=== PATIENT | female | born 1955 | race Caucasian/White ===

== ENCOUNTER 2019-05-13 07:41 | Day surgery (SDC) | payer OTHER ==
--- NOTE | 2019-05-12 16:27 | EKG ---
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
--- OUTSIDE RECORDS SUMMARY | 2019-05-13 07:43 | XMS REPORT | Clinical Summary ---
:1955 Author Organization [facility] Address [address] [place] [address] Care Team Providers Name Role Phone Edgar Sidhu MD Primary Care Provider Allergies Active Allergy Reactions Severity Noted Date Comments Adhesive Swelling, Rash Low 11/19/2017 Latex Swelling, Rash Low 07/09/2017 Penicillins Swelling, Rash Low 07/09/2017 Prednisone 07/09/2017 Allergy to all steroids, SECONDARY RENAL FAILURE Medications Medication Sig Dispensed Refills Start Date End Date Status gabapentin (NEURONTIN) Take 600 mg by 0 Active 600 mg tablet mouth 2 (two) times a day. traMADol (ULTRAM) 50 mg Take 50 mg by 0 Active tablet mouth 3 (three) times a day. tiZANidine (ZANAFLEX) 4 Take 4 mg by 0 Active MG tablet mouth 3 (three) times a day. iyezqxq-sdqomfkgtu-XNM- Take 1 capsule by 0 Active caff (FIORINAL WITH mouth 2 (two) CODEINE) [id number] times a day as mg capsule needed for pain. escitalopram (LEXAPRO) Take 10 mg by 0 Active 10 MG tablet mouth daily. cyanocobalamin 1,000 Inject 1,000 mcg 0 Active mcg/mL injection into the shoulder, thigh, or buttocks every 30 (thirty) days. sucralfate (CARAFATE) 1 Take 1 g by mouth 0 11/05/2017 Active gram tablet every morning. methocarbamol Take 1 tablet 40 tablet 3 11/23/2017 Active (ROBAXIN-750) 750 MG every 6 hours as tablet needed for spasms rivaroxaban (XARELTO) Take 10 mg by 0 Active 10 mg tablet mouth daily. CYANOCOBALAMIN, VITAMIN Take 5,000 mcg by 0 Active B-12, ORAL mouth daily. cholecalciferol, Take 1 tablet by 0 Active vitamin D3, (VITAMIN mouth daily. D3) 5,000 unit tablet Active Problems Problem Noted Date Cervical spinal stenosis 11/23/2017 Encounters Date Type Specialty Care Team Description 04/22/2019 Hospital Encounter Radiology Douglas Wade, Spinal stenosis in cervical region; Cervical stenosis (uterine cervix) 04/22/2019 Hospital Encounter Radiology Douglas Wade, Spinal stenosis in cervical region; Cervical stenosis (uterine cervix) 04/01/2019 Hospital Encounter Radiology Douglas Wade, Lumbar stenosis with neurogenic claudication; Cervical stenosis (uterine cervix) 04/01/2019 Hospital Encounter Radiology Douglas Wade, Lumbar stenosis with neurogenic claudication; Cervical stenosis (uterine cervix) 04/01/2019 Transcribe Orders Access Douglas Wade, Lumbar stenosis with neurogenic claudication (Primary Dx); Cervical stenosis (uterine cervix); Spinal stenosis in cervical region 06/09/2018 Hospital Encounter Radiology Douglas Wade, Cervical spinal stenosis 06/09/2018 Hospital Encounter Radiology Douglas Wade, Cervical stenosis of MD spinal canal 06/09/2018 Transcribe Orders Access Douglas Wade, Cervical spinal stenosis (Primary Dx) 06/09/2018 Transcribe Orders Access Douglas Wade, Cervical stenosis of MD spinal canal (Primary Dx) after 05/12/2018 Immunizations Name Dates Previously Given Next Due Influenza, Unspecified 07/05/2017 Family History Medical History Relation Name Comments Heart disease Father Hypertension Father Cancer Mother LUNG Hypertension Mother Heart disease Paternal Grandfather Stroke Paternal Grandfather Diabetes Paternal Uncle Relation Name Status Comments Father Mother Paternal Grandfather Paternal Uncle Social History Tobacco Use Types Packs/Day Years Used Date Never Smoker Smokeless Tobacco: Never Used Alcohol Use Drinks/Week oz/Week Comments No Sex Assigned at Date Recorded Not on file Job Start Date Occupation Industry Not on file Not on file Not on file Travel History Travel Start Travel End No recent travel history available. Last Filed Vital Signs Vital Sign Reading Time Taken Blood Pressure 126/68 04/22/2019 11:00 AM CDT Pulse 56 04/22/2019 11:00 AM CDT Temperature 36.6 C (97.9 F) 04/22/2019 8:40 AM CDT Respiratory Rate 18 04/22/2019 8:40 AM CDT Oxygen Saturation 98% 04/22/2019 11:00 AM CDT Inhaled Oxygen Concentration - - Weight 81.2 kg (179 lb) 04/22/2019 8:40 AM CDT Height 162.6 cm (5' 4") 04/22/2019 8:40 AM CDT Body Mass Index 30.73 04/22/2019 8:40 AM CDT Plan of Treatment Health Maintenance Due Date Last Done Comments BREAST CANCER SCREENING 2007 COLONOSCOPY SCREENING 2007 SHINGLES VACCINES (#1) 2007 INFLUENZA VACCINE 05/05/2019 07/05/2017 Implants Implanted 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 IR MYELOGRAM CERV Routine 04/22/2019 9:56 AM Spinal stenosis in Results for this INCL INJ W S&I CDT cervical region procedure are in Cervical stenosis the results (uterine cervix) section. XR LUMBAR SPINE AP Routine 04/01/2019 12:08 PM Lumbar stenosis with Results for this LATERAL FLEXION CDT neurogenic procedure are in AND EXTENSION claudication the results Cervical stenosis section. (uterine cervix) XR CERVICAL SPINE Routine 04/01/2019 12:08 PM Lumbar stenosis with Results for this AP LATERAL FLEXION CDT neurogenic procedure are in AND EXTENSION claudication the results Cervical stenosis section. (uterine cervix) XR LUMBAR SPINE AP Routine 06/09/2018 10:16 AM Cervical spinal Results for this LATERAL FLEXION CDT stenosis procedure are in AND EXTENSION the results section. XR CERVICAL SPINE Routine 06/09/2018 10:16 AM Cervical stenosis of Results for this AP LATERAL FLEXION CDT spinal canal procedure are in AND EXTENSION the results section. after 05/12/[address] Post Myelogram Cervical (04/22/2019 10:01 AM CDT) Specimen Narrative Performed At EXAMINATION: CT POST MYELOGRAM CERVICAL [facility] CLINICAL HISTORY: M48.02 Spinal stenosiscervical region, N88.2 Stricture and stenosis of cervix uteri, m48.02 COMPARISON:Cervical x-ray dated April 01, 2019 and MRI cervical spine dated April 15, [address] myelogram dated July 09, 2017 TECHNIQUE: Axial postintrathecal contrast enhanced images of the spine were obtained with coronal and sagittal MIP reconstructed imaging. CT imaging was performed with iterative reconstruction technique and/or automated exposure control to reduce radiation dose. FINDINGS: Cervical alignment is normal without straightening or spondylolisthesis. There is no fracture. An artificial disc is noted at C3-C4 and normal position. Lung apices are clear. Soft tissues shows no mass, adenopathy or edema. At C1-C2 there is mild osseous spurring at the atlantoaxial interval. There is no significant spondylosis or stenosis. The erosive changes of the right sided facet have improved since surgery. At C2-C3 there is stable right-sided uncovertebral arthrosis and facet disease with hypertrophy without stenosis. At C3-C4 there is a artificial disc noted in place. There is no posterior spondylosis or canal narrowing. Uncovertebral arthrosis and facet disease is present with mild to moderate right-sided osseous foraminal narrowing which is slightly improved from the preoperative CT exam with no evidence of progression. The left foramen and canal are widely patent. At C4-C5 there is no significant spondylosis or stenosis. At C5-C6 there is no spondylosis or stenosis. At C6-C7 there is mild disc bulge without canal narrowing. At C7-T1 there is no significant spondylosis or stenosis. IMPRESSION: 1.Findings show interval artificial disc placement changes at C3-C4 with good imaging postoperative appearance of the disc and good position. 2.The previously visualized moderate right foraminal narrowing at C3-4 has improved status post surgery with only mild to moderate osseous foraminal narrowing identified. No other stenosis identified or significant osseous abnormality. There are no CT myelogram findings to explain patient's severe neck pain and bilateral upper extremity pain. 3.The facet disease and erosive changes of the right C2-3 and C3-4 facets are actually improved from the prior exam. No progressive changes are identified. [id number] Procedure Note Interface, Radiology Results 04/22/2019 10:40 AM CDT EXAMINATION: CT POST MYELOGRAM CERVICAL CLINICAL HISTORY: M48.02 Spinal stenosis cervical region, N88.2 Stricture and stenosis of cervix uteri, m48.02 COMPARISON: Cervical x-ray dated April 01, 2019 and MRI cervical spine dated April 15, [address] myelogram dated July 09, 2017 TECHNIQUE: Axial postintrathecal contrast enhanced images of the spine were obtained with coronal and sagittal MIP reconstructed imaging. CT imaging was performed with iterative reconstruction technique and/or automated exposure control to reduce radiation dose. FINDINGS: Cervical alignment is normal without straightening or spondylolisthesis. There is no fracture. An artificial disc is noted at C3-C4 and normal position. Lung apices are clear. Soft tissues shows no mass, adenopathy or edema. At C1-C2 there is mild osseous spurring at the atlantoaxial interval. There is no significant spondylosis or stenosis. The erosive changes of the right sided facet have improved since surgery. At C2-C3 there is stable right-sided uncovertebral arthrosis and facet disease with hypertrophy without stenosis. At C3-C4 there is a artificial disc noted in place. There is no posterior spondylosis or canal narrowing. Uncovertebral arthrosis and facet disease is present with mild to moderate right-sided osseous foraminal narrowing which is slightly improved from the preoperative CT exam with no evidence of progression. The left foramen and canal are widely patent. At C4-C5 there is no significant spondylosis or stenosis. At C5-C6 there is no spondylosis or stenosis. At C6-C7 there is mild disc bulge without canal narrowing. At C7-T1 there is no significant spondylosis or stenosis. IMPRESSION: 1. Findings show interval artificial disc placement changes at C3-C4 with good imaging postoperative appearance of the disc and good position. 2. The previously visualized moderate right foraminal narrowing at C3-4 has improved status post surgery with only mild to moderate osseous foraminal narrowing identified. No other stenosis identified or significant osseous abnormality. There are no CT myelogram findings to explain patient's severe neck pain and bilateral upper extremity pain. 3. The facet disease and erosive changes of the right C2-3 and C3-4 facets are actually improved from the prior exam. No progressive changes are identified. [facility]-[id number] [facility] Organization Address City/State/Zipcode Phone Number [facility] [address] [place] [address] IR Myelogram Cerv Incl Inj W S&I (04/22/2019 9:56 AM CDT) Specimen Narrative Performed At EXAMINATION:IR MYELOGRAM CERV INCL INJ W S&I [facility] CLINICAL HISTORY:M48.02 Spinal stenosiscervical region, N88.2 Stricture and stenosis of cervix uteri, m48.02 COMPARISON:CT post myelogram dated April 22, 2019 of the cervical spine TECHNIQUE: After informed consent was obtained, the patient was placed prone on the fluoroscopy table. The back was prepped and draped in sterile manner.1% buffered lidocaine was used for local anesthesia. Under fluoroscopic guidance, a 27-gauge needle was advanced percutaneously into the spinal subarachnoid space via interlaminar approach at L2-L3 until free-flowing CSF returned from the hub. Subsequently,10-mL of iohexol 300was instilled into the thecal sac. The needle was removed. Multiple myelographic projections of the cervicalspine were obtained. The patient tolerated procedure well with no immediate complication. Total fluoroscopy time was 0.33 minutes.Total radiation dose is 365 mGy=Ka,r FINDINGS: The patient was unable to extend the neck. The contrast was diluted between the thoracic spine and basal cisterns. However contrast flows well-visualized on the CT portion of the myelogram. Please see that report for full details. The patient was unable to tolerate an extended neck position due to pain to get dense opacification by radiographic imaging. IMPRESSION: Successful myelographic contrast injection in the lumbar spine with contrast movement to the cervical spine with dilution of contrast resulting in high quality CT myelogram images above the conventional myelographic imaging as above. [id number] Procedure Note Interface, Radiology Results Incoming - 04/22/2019 5:14 PM CDT EXAMINATION: IR MYELOGRAM CERV INCL INJ W S&I CLINICAL HISTORY: M48.02 Spinal stenosis cervical region, N88.2 Stricture and stenosis of cervix uteri, m48.02 COMPARISON: CT post myelogram dated April 22, 2019 of the cervical spine TECHNIQUE: After informed consent was obtained, the patient was placed prone on the fluoroscopy table. The back was prepped and draped in sterile manner. 1% buffered lidocaine was used for local anesthesia. Under fluoroscopic guidance, a 27 -gauge needle was advanced percutaneously into the spinal subarachnoid space via interlaminar approach at L2-L3 until free-flowing CSF returned from the hub. Subsequently,10 -mL of iohexol 300 was instilled into the thecal sac. The needle was removed. Multiple myelographic projections of the cervical spine were obtained. The patient tolerated procedure well with no immediate complication. Total fluoroscopy time was 0.33 minutes. Total radiation dose is 365 mGy =Ka,r FINDINGS: The patient was unable to extend the neck. The contrast was diluted between the thoracic spine and basal cisterns. However contrast flows well-visualized on the CT portion of the myelogram. Please see that report for full details. The patient was unable to tolerate an extended neck position due to pain to get dense opacification by radiographic imaging. IMPRESSION: Successful myelographic contrast injection in the lumbar spine with contrast movement to the cervical spine with dilution of contrast resulting in high quality CT myelogram images above the conventional myelographic imaging as above. [facility]-[id number] Performing Organization Address City/State/Zipcode Phone Number [facility] [address] [place] [address] XR Lumbar Spine Ap Lateral Flexion And Extension (04/01/2019 12:08 PM CDT)Only the most recent of2 resultswithin the time period is included. Specimen Narrative Performed At EXAMINATION:XR LUMBAR SPINE AP LATERALFLEXION AND EXTENSION [facility] CLINICAL HISTORY:M48.062 Spinal stenosislumbar region with neurogenic claudication, N88.2 Stricture and stenosis of cervix uteri, lumbar stenosis IMPRESSION: 4 views of the lumbar spine were obtained. There are raw facet hypertrophic spondylotic changes at L4-L5 and L5-S1 level. There is a minimal grade 1 anterior listhesis of L4 on L5 level that measures 3 mm during neutral position. There is a complete reduction to 0 mm during extension and slight worsening during flexion which measures 4.5 mm. The bone density is unremarkable. The vertebral body height is unremarkable with no compression deformity. [id number] Procedure Note Interface, Radiology Results Incoming - 04/01/2019 6:54 PM CDT EXAMINATION: XR LUMBAR SPINE AP LATERAL FLEXION AND EXTENSION CLINICAL HISTORY: M48.062 Spinal stenosis lumbar region with neurogenic claudication, N88.2 Stricture and stenosis of cervix uteri, lumbar stenosis IMPRESSION: 4 views of the lumbar spine were obtained. There are raw facet hypertrophic spondylotic changes at L4-L5 and L5-S1 level. There is a minimal grade 1 anterior listhesis of L4 on L5 level that measures 3 mm during neutral position. There is a complete reduction to 0 mm during extension and slight worsening during flexion which measures 4.5 mm. The bone density is unremarkable. The vertebral body height is unremarkable with no compression deformity. [id number] Performing Organization Address [facility]/Zipcode Phone Number [facility] [address] [place] [address] XR Cervical Spine Ap Lateral Flexion And Extension (04/01/2019 12:08 PM CDT) Only the most recent of2 resultswithin the time period is included. Specimen Narrative Performed At EXAMINATION:XR CERVICAL SPINE AP LATERAL FLEXION AND EXTENSION [facility] CLINICAL HISTORY:M48.062 Spinal stenosislumbar region with neurogenic claudication, N88.2 Stricture and stenosis of cervix uteri, cervical stenosis IMPRESSION: 4 views of the cervical spine were obtained. There is intervertebral dynamic artificial disc graft at C3-C4 level which demonstrates good incorporation the bone with no loosening. The cervical spine alignment is unremarkable. The flexion-extension views versus no evidence of instability or abnormal motion. [id number] Procedure Note Hm Interface, Radiology Results Incoming - 04/01/2019 6:43 PM CDT EXAMINATION: XR CERVICAL SPINE AP LATERAL FLEXION AND EXTENSION CLINICAL HISTORY: M48.062 Spinal stenosis lumbar region with neurogenic claudication, N88.2 Stricture and stenosis of cervix uteri, cervical stenosis IMPRESSION: 4 views of the cervical spine were obtained. There is intervertebral dynamic artificial disc graft at C3-C4 level which demonstrates good incorporation the bone with no loosening. The cervical spine alignment is unremarkable. The flexion-extension views versus no evidence of instability or abnormal motion. [id number] Performing Organization Address City/[facility]/Zipcode Phone Number [facility] [address] [place] [address] after 05/12/2018 Insurance Payer Benefit Plan / Subscriber ID Effective Dates Phone Address Type Group [employer] MEDICARE HU[employer] MEDICARE xxxxxxxxx 2016-Present PPO PPO/PFFS/ERS [facility] [place] [address]
--- OUTSIDE RECORDS SUMMARY | 2019-05-13 07:44 | XMS REPORT | Continuity of Care Document ---
:1955 Author Organization [facility] Bench Care Team Providers Name Role Phone [facility] Bench Unavailable Unavailable Problems Problem Status Onset Classification Date Comments Source Date Reported KNEE ARTHRITIS Active [place] [id number] [place] Arthritis Active Problem 08/01/2017 [facility] Depression Active Problem 08/01/2017 [facility] Gastric ulcer Resolved Problem 08/01/2017 [facility] Blood clotting Resolved Problem 08/01/2017 had blood Ortho tendency1 clots x2 in and Spine LLE > 10 yrs ago Migraines Active Problem 08/01/2017 [facility] History of Active Problem 08/01/2017 Ortho recurrent deep and Spine vein thrombosis (Confirmed) Medications Medication Details Route Status Patient Ordering Order Source Instructions Provider Date Oxycodone 5 mg, 1 tab, Inactive Hydrochloride 5 Route: PO, 017 Ortho MG Oral Tablet Drug form: and TAB, ONCE, Spine Dosing Weight 69.182, kg, PRN Pain Score 4-6, Priority: NOW, Start date: 07/29/17 10:11:00 CDTNotes: (Same as: Roxicodone) gabapentin 600 MG 600 mg=1 tab, Active MH Oral Tablet PO, TID, # 90 017 Ortho tab, 0 and Refill(s), Spine Pharmacy: [facility] [id number] Acetaminophen 325 1 tab, PO, Active MH MG / Hydrocodone Q6H, PRN for 017 Ortho Bitartrate 7.5 MG pain, X 10 and Oral Tablet day, # 40 Spine [[place] 7.5/325] tab, 0 Refill(s), given to patient rivaroxaban 15 mg, 1 tab, No Longer Route: PO, Active 017 Ortho Drug form: and TAB, Q24H, Spine Dosing Weight 69.182, kg, Start date: 07/28/17 11:00:00 CDT, Stop date: 08/26/17 11:00:00 CSTNotes: (Same as: Xarelto) Administer with food gabapentin 600 MG 600 mg, 2 No Longer 07/28/2 MH Oral Tablet cap, Route: Active 017 Ortho PO, Drug and form: CAP, Spine TID, Dosing Weight 69.182, kg, Start date: 07/28/17 9:00:00 CDT, Duration: 30 day, Stop date: 08/26/17 17:00:00 CSTNotes: (Same as: Neurontin) Vitamin B12 5,000 mg, No Longer MH 5,000 tab, Active 017 Ortho Route: PO, and Drug form: Spine TAB, Daily, Dosing Weight 69.182, kg, Start date: 07/28/17 9:00:00 CDT, Duration: 30 day, Stop date: 08/26/17 9:00:00 TIN STACKER, Patient's Own MedsNotes: (Same As: Vitamin B-12) POLYETHYLENE 17 gm, 1 pkt, No Longer MH GLYCOL 3350 Route: PO, Active 017 Ortho Drug form: and PWDR, Daily, Spine Dosing Weight 69.182, kg, Start date: 07/28/17 9:00:00 CDT, Duration: 30 day, Stop date: 08/26/17 9:00:00 CSTNotes: Dissolve in 8 oz of water or juice. (Same as: Miralax) senna 8.6 mg oral 8.6 mg, 1 No Longer MH tablet tab, Route: Active 017 Ortho PO, Drug and Form: TAB, Spine Dosing Weight 69.182, kg, Daily, Start date: 07/28/17 9:00:00 CDT, Duration: 30 day, Stop date: 08/26/17 9:00:00 CSTNotes: (Same as: Senokot) Lexapro 10 mg, 1 tab, No Longer 2 MH Route: PO, Active 017 Ortho Drug form: and TAB, Daily, Spine Dosing Weight 69.182, kg, Start date: 07/28/17 9:00:00 CDT, Duration: 30 day, Stop date: 08/26/17 9:00:00 TIN STACKER, Patient's Own MedsNotes: (Same as: Lexapro) Vitamin D3 5000 5,000 No Longer MH intl units oral IntlUnit, 5 Active 017 Ortho capsule tab, Route: and PO, Drug Spine form: TAB, Daily, Dosing Weight 69.182, kg, Start date: 07/28/17 9:00:00 CDT, Duration: 30 day, Stop date: 08/26/17 9:00:00 TIN STACKER, Patient's Own MedsNotes: Same as : Vitamin D3 Physical Therapy See Active Instructions, 017 Ortho MISC, ONCALL, and Evaluate and Spine Treat _3__ times per week for __4__ weeks. TKA protocol ROM goal 0-120, # 1 unit, 0 Refill(s) Vancomycin 1,000 mg, No Longer Route: IVPB, Active 017 Ortho Q12H, Dosing and Weight Spine 69.182, kg, Time Critical Medication, Start date: 07/27/17 22:00:00 CDT, Duration: 2 doses or times, Stop date: 07/28/17 10:00:00 CDT, Pharmacy to adjust dose for renal function, ABX Indication: Surgical Prop...Notes: TIME CRITICAL MEDICATION (Same As: Vancocin) Infusion rate 2001 mg: infuse over 2.5 hours MEDICATION WASTE Product Size: 1000 mg Product Wasted: ___ mg Ondansetron 4 mg, 2 mL, Inactive Route: IV, 017 Ortho Drug form: and INJ, Q8H, Spine Dosing Weight 69.091, kg, PRN Nausea, Start date: 07/27/17 19:48:00 CDT, Duration: 3 doses or times, Stop date: Limited # of timesNotes: (Same as: Zofran) MEDICATION WASTE Product Size: 4 mg Product Wasted: ___ mg Tranexamic Acid 1.95 gm, 3 Inactive tab, Route: 017 Ortho PO, Drug and form: TAB, Spine ONCE, Dosing Weight 69.091, kg, Start date: 07/27/17 19:48:00 CDT, Stop date: 07/27/17 19:48:00 CDTNotes: (Same as: Lysteda) Non-Formulary Lactated Ringers 1,000 mL, No Longer 1,000 mL Rate: 40 Active 017 Ortho ml/hr, Infuse and over: 25 hr, Spine Route: IV, Dosing Weight 69.182 kg, Total Volume: 1,000, Start date: 07/27/17 17:32:00 CDT, Duration: 30 day, Stop date: 08/26/17 17:31:00 TIN STACKER Docusate 100 mg, Inactive MH Route: PO, 017 Ortho BID, Dosing and Weight Spine 69.182, kg, Start date: 07/27/17 17:00:00 CDT, Duration: 30 day, Stop date: 08/26/17 9:00:00 TIN STACKER Miralax 17 gm, 1 pkt, Inactive Route: PO, 017 Ortho Drug form: and PWDR, BID, Spine Dosing Weight 69.182, kg, Start date: 07/27/17 17:00:00 CDT, Duration: 30 day, Stop date: 08/26/17 9:00:00 CSTNotes: Dissolve in 8 oz of water or juice. (Same as: Miralax) Docusate Sodium 100 mg, 1 No Longer MH 100 MG Oral cap, Route: Active 017 Ortho Capsule [Colace] PO, Drug and form: CAP, Spine BID, Dosing Weight 69.182, kg, Start date: 07/27/17 17:00:00 CDT, Duration: 30 day, Stop date: 08/26/17 9:00:00 CSTNotes: (Same as: Colace) (Do Not Crush) Fiorinal with Fiorinal with No Longer Codeine Codeine, 2 Active 017 Ortho cap, Drug and form: MISC, Spine Route: PO, Q6H, PRN Headache 7-10, 07/27/17 14:51:00 CDT, Duration: 30 day, Stop date: 08/26/17 14:50:00 TIN STACKER Demerol HCl 12.5 mg, 0.25 Inactive MH mL, Route: 017 Ortho IVP, Drug and form: INJ, Spine POST OP, Dosing Weight 69.182, kg, PRN Chills/Rigors , Start date: 07/27/17 14:15:00 CDT, Stop date: 07/31/17 14:14:00 CDTNotes: (Same as: Demerol) "Use Precaution in Elderly, Seizure disorders, and Renal impairment" Demerol HCl 12.5 mg, 0.25 No Longer MH mL, Route: Active 017 Ortho IVP, Drug and form: INJ, Spine POST OP, Dosing Weight 69.182, kg, PRN Chills/Rigors , Start date: 07/27/17 14:00:00 CDT, Stop date: 07/31/17 13:59:00 CDTNotes: (Same as: Demerol) "Use Precaution in Elderly, Seizure disorders, and Renal impairment" Trazodone 50 mg, 1 tab, No Longer MH Route: PO, Active 017 Ortho Drug form: and TAB, Bedtime, Spine Dosing Weight 69.182, kg, PRN Insomnia, Start date: 07/27/17 13:48:00 CDT, Duration: 30 day, Stop date: 08/26/17 13:47:00 CSTNotes: (Same As: Desyrel) Melatonin 3 mg, 1 tab, No Longer MH Route: PO, Active 017 Ortho Drug form: and TAB, Bedtime, Spine Dosing Weight 69.182, kg, PRN Insomnia, Start date: 07/27/17 13:48:00 CDT, Duration: 30 day, Stop date: 08/26/17 13:47:00 CSTNotes: (Same as: Melatonin) Diphenhydramine 12.5 mg, 5 No Longer MH mL, Route: Active 017 Ortho PO, Drug and form: LIQ, Spine Q6H, Dosing Weight 69.182, kg, PRN Itching, Start date: 07/27/17 13:48:00 CDT, Duration: 30 day, Stop date: 08/26/17 13:47:00 CSTNotes: (Same as: Benadryl) Oxycodone 5 mg, 1 tab, No Longer MH Hydrochloride 5 Route: PO, Active 017 Ortho MG Oral Tablet Drug form: and TAB, Q4H, Spine Dosing Weight 69.091, kg, PRN Pain Score 7-10, Start date: 07/27/17 13:48:00 CDT, Duration: 30 day, Stop date: 08/26/17 13:47:00 CSTNotes: (Same as: Roxicodone) Morphine 4 mg, 0.4 mL, No Longer MH Route: IVP, Active 017 Ortho Drug form: and INJ, Q4H, Spine Dosing Weight 69.091, kg, PRN Pain Score 7-10, Start date: 07/27/17 13:48:00 CDT, Duration: 30 day, Stop date: 08/26/17 13:47:00 CSTNotes: (Same as:MORPhine Sulfate) Bisacodyl 10 mg, 1 No Longer MH supp, Route: Active 017 Ortho AL, Drug and form: SUPP, Spine Daily, Dosing Weight 69.182, kg, PRN Constipation, Start date: 07/27/17 13:48:00 CDT, Duration: 30 day, Stop date: 08/26/17 13:47:00 CSTNotes: (Same As: Dulcolax, Bisco-Lax) Ondansetron 4 mg, 2 mL, No Longer MH Route: IVP, Active 017 Ortho Drug form: and INJ, Q8H, Spine Dosing Weight 69.182, kg, PRN Nausea & Vomiting, Start date: 07/27/17 13:48:00 CDT, Duration: 30 day, Stop date: 08/26/17 13:47:00 CSTNotes: (Same as: Zofran) MEDICATION WASTE Product Size: 4 mg Product Wasted: ___ mg Acetaminophen 325 1 tab, Route: No Longer MH MG / Hydrocodone PO, Drug Active 017 Ortho Bitartrate 5 MG Form: TAB, and Oral Tablet Dosing Weight Spine [[place] 5/325] 69.091, kg, Q4H, PRN Pain Score 1-3, Start date: 07/27/17 13:48:00 CDT, Duration: 30 day, Stop date: 08/26/17 13:47:00 CSTNotes: (Same as: [place] 325/5) Do not exceed 4gm/day of acetaminophen . Tylenol 650 mg, 2 No Longer MH tab, Route: Active 017 Ortho PO, Drug and form: TAB, Spine Q6H, Dosing Weight 69.091, kg, PRN For Temp > 100.4 F, Start date: 07/27/17 13:48:00 CDT, Duration: 30 day, Stop date: 08/26/17 13:47:00 CSTNotes: Do not exceed 4 gm/day. (Same as: Tylenol) sodium chloride 1,000 mL, No Longer MH 0.9% 1000 ml INJ Rate: 85 Active 017 Ortho 1,000 mL ml/hr, Infuse and over: 11.8 Spine hr, Route: IV, Dosing Weight 69.182 kg, Total Volume: 1,000, Start date: 07/27/17 13:48:00 CDT, Duration: 30 day, Stop date: 08/26/17 13:47:00 TIN STACKER Acetaminophen 325 1 tab, Route: No Longer MH MG / Hydrocodone PO, Drug Active 017 Ortho Bitartrate 10 MG Form: TAB, and Oral Tablet Dosing Weight Spine [[place] 10/325] 69.091, kg, Q4H, PRN Pain Score 4-6, Start date: 07/27/17 13:48:00 CDT, Duration: 30 day, Stop date: 08/26/17 13:47:00 CSTNotes: Do not exceed 4gm/day of acetaminophen . (Same as: [place] 325/10) Milk of Magnesia 30 ml, Route: No Longer MH PO, Drug Active 017 Ortho Form: SUSP, and Dosing Weight Spine 69.091, kg, Daily, PRN Constipation, Start date: 07/27/17 13:48:00 CDT, Duration: 30 day, Stop date: 08/26/17 13:47:00 CSTNotes: (Same as: Milk of Magnesia, MOM) Maalox Advanced 30 mL, Route: No Longer MH Regular Strength PO, Drug Active 017 Ortho SUSP Form: SUSP, and Dosing Weight Spine 69.091, kg, QID, PRN Indigestion, Start date: 07/27/17 13:48:00 CDT, Duration: 30 day, Stop date: 08/26/17 13:47:00 CSTNotes: (aluminum hydroxide-mag nesium hyd- simethicone [id number]/ 5ml 30 ml ud AUSTEN) Famotidine 20 mg, 1 tab, No Longer Route: PO, Active 017 Ortho Drug form: and TAB, BID, Spine Dosing Weight 69.091, kg, PRN Indigestion, Start date: 07/27/17 13:48:00 CDT, Duration: 30 day, Stop date: 08/26/17 13:47:00 CSTNotes: (Same as: Pepcid) Zofran 4 mg, 2 mL, No Longer Route: IV, Active 017 Ortho Drug form: and INJ, Q6H, Spine Dosing Weight 69.182, kg, PRN Nausea, Start date: 07/27/17 13:40:00 CDT, Duration: 30 day, Stop date: 08/26/17 13:39:00 CSTNotes: (Same as: Zofran) MEDICATION WASTE Product Size: 4 mg Product Wasted: ___ mg Tylenol 650 mg, 2 Inactive tab, Route: 017 Ortho PO, Drug and form: TAB, Spine Q6H, Dosing Weight 69.182, kg, PRN For Temp > 100.4 F, Start date: 07/27/17 13:40:00 CDT, Duration: 30 day, Stop date: 08/26/17 13:39:00 CSTNotes: Do not exceed 4 gm/day. (Same as: Tylenol) Dulcolax Laxative 10 mg, 1 Inactive supp, Route: 017 Ortho AL, Drug and form: SUPP, Spine Daily, Dosing Weight 69.182, kg, PRN Constipation, Start date: 07/27/17 13:40:00 CDT, Duration: 30 day, Stop date: 08/26/17 13:39:00 CSTNotes: (Same As: Dulcolax, Bisco-Lax) Zanaflex 4 mg, 1 tab, No Longer Route: PO, Active 017 Ortho Drug form: and TAB, Q8H, Spine Dosing Weight 69.182, kg, PRN Muscle Spasms, Start date: 07/27/17 13:29:00 CDT, Duration: 30 day, Stop date: 08/26/17 13:28:00 TIN STACKER, Patient's Own MedsNotes: (Same As: Zanaflex) Fiorinal with 2 cap, Route: Inactive Codeine PO, Dosing 017 Ortho Weight and 69.182, kg, Spine Q6H, PRN Headache 7-10, Start date: 07/27/17 13:28:00 CDT, Duration: 30 day, Stop date: 08/26/17 13:27:00 TIN STACKER, Patient's Own Meds polymyxin B 125,000 unit, Inactive sulfate + sodium Route: IRRIG, 017 Ortho chloride 0.9% 250 ONCALL, Start and mL INJ (for IV date: Spine set) 250 mL 07/27/17 10:45:00 CDT, Duration: 1 doses or times, Stop date: 07/27/17 16:00:00 CDTNotes: (Same as: Polymyxin B Sulfate) ropivacaine 100 mL, Inactive Route: 017 Ortho InFILtration( and local), Drug Spine Form: INJ, ONCALL, Start date: 07/27/17 10:45:00 CDT, Stop date: 07/27/17 16:00:00 CDTNotes: NOT FOR IV use Ropivacaine 5 mg/mL (49.25 mL) Epinephrine 1 mg/mL (0.5 mL) Clonidine 0.1 mg/mL (0.8 mL) Ketorolac 30 mg/mL (1 mL) Normal Saline 48.45 mL vancomycin + 500 mg, Inactive sodium chloride Route: IRRIG, 017 Ortho 0.9% 250 mL INJ ONCALL, Start and (for IV set) 250 date: Spine mL 07/27/17 10:45:00 CDT, Duration: 1 doses or times, Stop date: 07/27/17 16:00:00 CDT, ABX Indication: Surgical ProphylaxisNo rachel: TIME CRITICAL MEDICATION (Same As: Vancocin) Tranexamic Acid 1,950 mg, 3 Inactive tab, Route: 017 Ortho PO, Drug and form: TAB, Spine ONCE, Dosing Weight 69.182, kg, Start date: 07/27/17 8:48:00 CDT, Stop date: 07/27/17 8:48:00 CDTNotes: (Same as: Lysteda) Non-Formulary Zofran 4 mg, 2 mL, Inactive Route: IVP, 017 Ortho Drug form: and INJ, ONCE, Spine Dosing Weight 69.182, kg, Start date: 07/27/17 8:48:00 CDT, Stop date: 07/27/17 8:48:00 CDTNotes: (Same as: Zofran) MEDICATION WASTE Product Size: 4 mg Product Wasted: ___ mg Vancomycin 1 gm, Route: Inactive IV, ONCE, 017 Ortho Dosing Weight and 69.182, kg, Spine Start date: 07/27/17 8:48:00 CDT, Stop date: 07/27/17 8:48:00 CDT, ABX Indication: Surgical ProphylaxisNo rachel: TIME CRITICAL MEDICATION (Same As: Vancocin) Infusion rate 2001 mg: infuse over 2.5 hours MEDICATION WASTE Product Size: 1000 mg Product Wasted: ___ mg Lactated Ringers 1,000 mL, Inactive 1,000 mL Rate: 40 017 Ortho ml/hr, Infuse and over: 25 hr, Spine Route: IV, Dosing Weight 69.182 kg, Total Volume: 1,000, Start date: 07/27/17 8:47:00 CDT, Duration: 30 day, Stop date: 08/26/17 8:46:00 TIN STACKER Vitamin B12 1000 1,000 Active MH mcg/mL injectable microgram=1 017 Ortho solution mL, SUB-Q, and qMonth, # 10 Spine mL, 0 Refill(s) Vitamin D3 5000 5,000 Active MH intl units oral IntlUnit=1 017 Ortho tablet tab, PO, and Daily, 0 Spine Refill(s) Vitamin B12 5,000 mg, PO, Active MH Daily, 0 017 Ortho Refill(s) and Spine rivaroxaban 15 MG 15 mg=1 tab, Active MH Oral Tablet PO, Daily, # 017 Ortho [Xarelto] 90 tab, 3 and Refill(s) Spine Escitalopram 10 10 mg=1 tab, Active MH MG Oral Tablet PO, Daily, # 017 Ortho [Lexapro] 30 tab, 0 and Refill(s) Spine Fiorinal with 2 cap, PO, Active MH Codeine Q6H, PRN 017 Ortho migraines, 0 and Refill(s) Spine gabapentin 600 MG 600 mg=1 tab, No Longer MH Oral Tablet PO, Daily, # Active 017 Ortho 270 tab, 0 and Refill(s) Spine tizanidine 4 MG 4 mg=1 cap, Active MH Oral Capsule PO, Q8H, PRN 017 Ortho [Zanaflex] for muscle and spasms, # 90 Spine cap, 0 Refill(s) tramadol 50 mg=1 tab, No Longer MH hydrochloride 50 PO, BID, # 30 Active 017 Ortho MG Oral Tablet tab, 0 and Refill(s) Spine Allergies, Adverse Reactions, Alerts Substance Category Reaction Severity Reaction Status Date Comments Source type Reported anabolic Assertion secondary Drug Active stated she MH steroids<sup adrenal allergy had steroid Ortho >1</sup> failire injections and in her back Spine and sometime after a dos marbin and 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 Latex Assertion red whelps Drug Active MH allergy Ortho and Spine penicillin Assertion swelling, Drug Active MH dyspnea allergy Ortho and Spine Immunizations Immunization Date Given Site Status Last Updated Comments Source influenza virus 07/29/2017 Not Given Ortho vaccine, and Spine inactivated Results Order Name Results Value Reference Date Interpretation Comments Source Range HEMATOLOGY Hct 33.0 36.0 - 48.0 2016 [facility] HEMATOLOGY Hgb 11.0 12.0 - 16.0 2016 [facility] CHEM PANEL eGFR 83 2016 Comment: The Ortho eGFR is and calculated Spine using the CKD-EPI formula. In most young, healthy individuals the eGFR will be >90 mL/min/1.73m2 . The eGFR declines with age. An eGFR of 60-89 may be normal in some populations, particularly the elderly, for whom the CKD-EPI formula has not been extensively validated. Use of the eGFR is not recommended in the following populations:< br/>
Sylwia viduals with unstable creatinine concentration s, including patients and those with serious co-morbid conditions.<b r/>
Patie nts with extremes in muscle mass or diet.

The data above are obtained from the National Kidney Disease Education Program (NKDEP) which additionally recommends that when the eGFR is used in patients with extremes of body mass index for purposes of drug dosing, the eGFR should be multiplied by the estimated BMI. CHEM PANEL CO2 28 24 - 32 2016 [facility] CHEM PANEL Chloride Lvl 105 95 - 109 2016 [facility] CHEM PANEL Calcium Lvl 8.8 8.5 - 10.5 2016 [facility] CHEM PANEL Potassium Lvl 4.2 3.5 - 5.1 2016 [facility] CHEM PANEL Sodium Lvl 138 135 - 145 2016 [facility] CHEM PANEL Creatinine 0.78 0.50 - 1.40 Lvl 2016 [facility] CHEM PANEL BUN 6 7 - 22 2016 [facility] CHEM PANEL Glucose Lvl 117 70 - 99 2016 [facility] CHEM PANEL AGAP 9.2 10.0 - 20.0 2016 [facility] HEMATOLOGY MPV 9.5 7.4 - 10.4 2016 [facility] HEMATOLOGY Platelet 85 133 - 450 2016 [facility] HEMATOLOGY RDW 14.4 11.5 - 14.5 2016 [facility] HEMATOLOGY MCH 29.6 27.0 - 31.0 2016 [facility] HEMATOLOGY MCHC 33.5 32.0 - 36.0 2016 [facility] HEMATOLOGY Hct 30.2 36.0 - 48.0 2016 [facility] HEMATOLOGY MCV 88.3 80.0 - 98.0 2016 [facility] HEMATOLOGY RBC 3.42 4.20 - 5.40 2016 [facility] HEMATOLOGY Hgb 10.1 12.0 - 16.0 2016 [facility] HEMATOLOGY WBC 5.1 3.7 - 10.4 2016 [facility] HEMATOLOGY Monocytes 9.2 2.0 - 12.0 2016 [facility] HEMATOLOGY Eosinophils 3.9 0.0 - 4.0 2016 [facility] HEMATOLOGY Lymphocytes 20.4 20.0 - 40.0 2016 [facility] HEMATOLOGY Segs 65.7 45.0 - 75.0 2016 [facility] HEMATOLOGY Eosinophils # 0.2 0.0 - 0.5 2016 [facility] HEMATOLOGY Lymphocytes # 1.0 1.0 - 5.5 2016 [facility] HEMATOLOGY Monocytes # 0.5 0.0 - 0.8 2016 [facility] HEMATOLOGY Basophils 0.8 0.0 - 1.0 2016 [facility] HEMATOLOGY Segs-Bands # 3.4 1.5 - 8.1 2016 [facility] HEMATOLOGY PROTIME 14.0 12.0 - 14.7 2016 [facility] HEMATOLOGY INR 1.08 0.85 - 1.17 2016 [facility] Pathology Reports No Data Provided for This Section Diagnostic Reports No Data Provided for This Section Consultation Notes No Data Provided for This Section Discharge Summaries No Data Provided for This Section History and Physicals No Data Provided for This Section Vital Signs Vital Sign Value Date Comments Source Heart Rate 72 07/29/2017 [facility] Systolic (mm Hg) 120 07/29/2017 [facility] Diastolic (mm Hg) 67 07/29/2017 [facility] Respitory Rate 18 07/29/2017 [facility] Temperature Oral (F) 98.6 F 07/29/2017 [facility] Systolic (mm Hg) 100 07/29/2017 [facility] Diastolic (mm Hg) 59 07/29/2017 [facility] Respitory Rate 16 07/29/2017 [facility] Temperature Oral (F) 98.8 F 07/29/2017 [facility] Heart Rate 83 07/29/2017 [facility] Respitory Rate 18 07/29/2017 [facility] Systolic (mm Hg) 130 07/29/2017 [facility] Diastolic (mm Hg) 80 07/29/2017 [facility] Heart Rate 91 07/29/2017 [facility] Temperature Oral (F) 98.4 F 07/29/2017 [facility] Spine BMI Calculated 26.18 07/27/2017 [facility] Spine Weight 69.182 07/27/2017 [facility] Height 162.56 cm 07/17/2017 Ortho and Spine Encounters Location Location Encounter Encounter Reason Attending ADM DC Status Source Details Type Number For Provider Date Date Visit [facility] Inpatient [id number] Jarad 07/27 07/29 LUIS ALBERTO Woodruff /2016 [facility] Procedures Procedure Code Date Perfomer Comments Source Arthroscopy of [id number] multiple MH Ortho knee<sup>1</sup> and Spine Breast reduction, [id number] Ortho bilateral and Spine Cholecystectomy [id number] [facility] - Carpal tunnel [id number] MH [facility]o release and Spine Hysterectomy [id number] [facility] Joint replacement [id number] [facility] Lumbar laminectomy [id number] MH [facility] and excision of and Spine intradural spinal lesion Meniscectomy [id number] Ortho and Spine Myringotomy [id number] Ortho and Spine Sinusotomy<sup>2</sup [id number] vigil lyric + Ortho > tube in and Spine frontal sinus Assessment and Plan Assessment and Plan Date Source Extracted from:Title: Progress Note 07/29/2017 Ortho and Spine Author: Ketan Lora MD Date: 07/29/17 Assessment/Plan 1.Osteoarthritis of left knee -POD#2 left total knee arthroplasty -management as per primary -post op PT, WBAT -xarelto restarted for dvt proph 2.Acute pain -secondary to #1 -better controlled today -c/w MMP regimen, bowel regimen, incentive spirometry 3.Depression -lexapro 4.Migraines -migraine resolved, and she can continue fiorinal prn 5.History of recurrent deep vein thrombosis (DVT) of left lower extremity -xarelto 6.Corneal laceration -from recent eye trauma -on abxeye gtt 7. Acute Blood Loss Anemia -secondary to recent surgery -hgb stable at 11 -continue to monitor and transfuse if <7 Prophylaxis xarelto Disposition home today as per primary [facility] is consult. If any questions, please call [phone] Extracted from:Title: Discharge Summary Author: Jarad Woodruff MD Date: 07/29/17 Discharge Summary Admission date:07/27/17 Discharge date:07/29/17 Preoperative diagnosis: right knee DJD Postoperative diagnosis: Same Procedure: right total knee arthroplasty Consults: Physical Therapy, Internal Medicine Hospital course: Patient was admitted on the above date for treatment of right knee DJD. Patient underwent the operative procedure of a right total knee arthroplasty. Patient was monitored by the automotive internet sales consultant al medicine service and remained stable throughout the post operative course. Patient's H&H on the first postoperative day was 10.1/30.2. Patient's H&H on the second post oper ative day was 11.0/33. Patient was seen by physical therapy twice daily and was ambulating well with a walker prior to discharge. ROM goals achieved. Patient was cleared for discharge on postop day 2. Hospital course was uneventful. Diet: regular Meds: please see med reconciliation list; increase gabapentin to TID Activity: WBAT, walker transition to cane Follow up: follow up in [address] Woodruff Extracted from:Title: Consult Note Author: Osei Chatterjee MD Date: 07/21/17 Assessment/Plan 1.Preop cardiovascular exam Type of surgery:Left total knee arthroplasty, intermediate risk Chronic medical issues:Nomajor medical issues Physical exam concerns: None Patient is able to perform >4METs Activity with out cardiovascular symptoms Baseline EKG showssinus bradycardia Outpatient prototype assembler electronics:None Revised cardiac risk index scoreis 0 consistent with 0.4% risk ofmajor perioperativecardiac event Patient is considered a lowperioperativeCardiovascular risk for intermediate risk surgery and may proceed without further preoperativeworkup. Risks and benefits of surgery discussed with patient 2.Left knee pain Schedule for left total knee arthroplasty with Dr. Rudd 07/27/1970 3.Depression Continue on Lexapro 4.Migraines Takes Fiorinalas needed 5.History of recurrent deep vein thrombosis (DVT) of left lower extremity On chronic Xarelto. Patient instructed to hold Xarelto at least3 days prior to surgery. Patient can resumeXarelto once cleared from surgical standpoint [facility] Hospitalist Consult Please [id number] with any questions Plan of Care No Data Provided for This Section Social History Social History Date Source Social History TypeResponse 07/17/2017 Ortho and Spine Exercise 1 Alcohol Never Smoking Status Never smoker; Exposure to Tobacco Smoke None; Cigarette Smoking Last 365 Days No; Reg Smoking Cessation Counseling No 1Denies sob on exertion Family History No Data Provided for This Section Advance Directives No Data Provided for This Section Functional Status No Data Provided for This Section
--- OUTSIDE RECORDS SUMMARY | 2019-05-13 07:44 | XMS REPORT ---
:1955 [facility] Address [address] [place] [address] Dr. Avalos [address] [place] [id number] Care Team Providers Name Role Phone RENETTA CAMPOVERDE Unavailable Unavailable Problems This patient has no known problems. Allergies, Adverse Reactions, Alerts This patient has no known allergies or adverse reactions. Medications This patient has no known medications. Results Test Description Test Time Test Comments Text Results Atomic Results Result Comments Special Procedure Send Out 2017-05-25 13:58:00 Test Item Value Reference Range Comments Performing Site (test code=SITE) see [facility] report Test Ordered (test code=TESTORD) B-Type Natriuretic Peptide
[2019-05-13] MEDS ORDERED: Ringers Lactate 1,000 ML IV ONE (07:53)
[2019-05-13] MEDS: OXYMETAZOLINE HCL 0.05% 15ML NAS ONE ×4 (08:11→09:30)
[2019-05-13] MEDS ORDERED: OXYMETAZOLINE HCL 0.05% 15ML NAS ONE (08:28)
[2019-05-13] MEDS ORDERED: LIDOCAINE 1% W/EPI 1:100,000 MDV 20 ML VIAL ONE (08:29)
[2019-05-13] MEDS ORDERED: MIDAZOLAM HCL 2 MG/2 ML INJ ONE (09:19)
[2019-05-13] MEDS ORDERED: LIDOCAINE 2% MPF 5 ML VIAL ONE (09:19)
[2019-05-13] MEDS ORDERED: FENTANYL CITR 100 MCG/2 ML ONE (09:19)
[2019-05-13] MEDS ORDERED: PROPOFOL 200 MG/20 ML VIAL IV ONE (09:19)
--- NOTE | 2019-05-13 10:19 | P.BOP ---
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
[2019-05-13] MEDS: MORPHINE 4 MG/ML SYR ONE ×4 (10:29→10:48)
[2019-05-13] MEDS ORDERED: ONDANSETRON 4 MG/2 ML VIAL ONE (10:54)
[2019-05-13] MEDS ORDERED: MEPERIDINE HCL 25 MG/0.5 ML ONE (10:54)
[2019-05-13] MEDS ORDERED: HYDROMORPHONE HCL 1 MG/ML INJ ONE (10:54)
--- NOTE | 2019-05-14 03:49 | OP ---
Date of Procedure: 05/13/2019 Surgeon: Gladys Foster MD Preoperative Diagnosis: Left nasal scar and nasal obstruction. Postoperative Diagnosis: Left nasal scar and nasal obstruction. Procedure: Nasal endoscopy with excision of scar and placement of Green splint. Indication For Procedure: Ms. Alegria underwent control of epistaxis at an outside facility in 2018. The patient reported at that time, she was gushing blood in the emergency room. They cau terized and packed the nose and she presented for evaluation. At that time, the patient was on Xarel to for a left DVT. At that time, the left nasal cavity had crusting and abnormal appearance with a f ibrinous tissue versus septal mass. Biopsy was taken at that time and demonstrated acute inflammatio n with no sign of cancer. At her followup visit, the patient was not having any bleeding, but exam d emonstrated a thick scar band, which developed between the septum and the lateral nasal wall causing obstruction of the lateral nasal valve. The patient presented this summer for treatment of her nasal valve obstruction with desire for surgical treatment. She completed her Xarelto and was no longer o n blood thinners. Over the interim 6 months, patient had no significant bleeding from the nose. The risks, benefits, and alternatives to the procedure were discussed with the patient, who agreed to pr oceed. Procedure In Detail: The patient was brought to the operating room. She was placed under general an esthesia via oral endotracheal tube. The head of bed was turned 90 degrees. The patient's face was prepped in standard fashion for sinus surgery. The nasal cavity was examined using a speculum and he adlight. A thick scar band was noted in the nasal cavity between the lateral nasal wall and the sept um. Photo documentation of the scar band was made using an endoscope. The area of scar was injected with lidocaine and a 45-degree Marco-Cut was used to divide the scar band releasing the lateral nasal wall from the septum entirely. The area was packed with Afrin-soaked pledgets. Photo documentation of the contralateral right nasal cavity was made for patient education and contrast. The area of the right septum was carefully cauterized with hopes of avoiding additional future bleeding. The nasal endoscopy of the middle meatus revealed a small scar band from the middle turbinate to the lateral na aime wall, but prior maxillary antrostomy appeared patent. There was no infection or crusting and dec ision was made to forego division of the middle turbinate scar as it was less likely contributing to patient's nasal obstructive symptoms based on the time, course, and development of her symptoms. In order to prevent re-adhesion of the lateral nasal wall to the septum, a Green splint was trimmed and placed, positioned within the nasal cavity. It was secured using a nylon suture to the membranous se ptum. A Gelfoam dissolvable packing was then wedged between the splint and the lateral nasal wall to apply tamponade to the oozing from this area. Bleeding was well controlled and the patient's nasoph arynx, nasal cavity were suctioned. Patient was then returned to care of Anesthesia, awakened and br ought to the recovery room in stable condition. Complications: None. Specimens: None. Disposition: Patient will be discharged home later today and follow up with Dr. Foster in [facility] 10 days for removal of the splint. HEATHER/GRAHAM Voice ID: [id number] Report ID: [id number]
== END 2019-05-13 12:05 | disposition home or self-care (01) ==
LOC: OR 07:41
PROVIDERS: ATTEND Otolaryngology
PROC: 09BK8ZZ Excision of Nasal Mucosa and Soft Tissue, Via Natural or Artificial Opening Endoscopic (ICD-10-PCS; principal; 2019-05-13 09:00)
DX: J34.89 Other specified disorders of nose and nasal sinuses (principal); F32.9 Major depressive disorder, single episode, unspecified; Z79.899 Other long term (current) drug therapy; Z86.718 Personal history of other venous thrombosis and embolism; L90.5 Scar conditions and fibrosis of skin
CPT/HCPCS: 30999; 93005; J2704; J2250; J3010; J2175; J1170; J2405